=== PATIENT | male | born 1965 | race Caucasian/White ===

== ENCOUNTER 2017-01-09 05:26 | Emergency (ER) | payer MEDICAID ==
[2017-01-09 07:01] LABS: BASOPHIL % 0.4 % (0-2); PLATELET COUNT 219 x10^3mcL (130-400); RED CELL DISTRIBUTION WIDTH 13.1 % (11.5-14.5)
[2017-01-09 07:20] LABS: CALCIUM 8.5 mg/dL (8.5-10.1); CHLORIDE SERUM 102 mmol/L (98-107); CREATININE SERUM 0.8 mg/dL (0.7-1.3); GFR1 > 60 mL/min; GLUCOSE SERUM 395 mg/dL (74-106); POTASSIUM SERUM 4.6 mmol/L (3.5-5.1); SODIUM SERUM 136 mmol/L (136-145)
[2017-01-09 07:24] LABS: ALBUMIN 3.5 g/dL (3.4-5.0); ALKALINE PHOSPHATASE 185 U/L (46-116); ALT/SGPT 29 U/L (16-63); AMYLASE 54 U/L (25-115); AST/SGOT 15 U/L (15-37); BILIRUBIN TOTAL 0.34 mg/dL (0.20-1.00); LIPASE 173 IU/L (73-393); TOTAL PROTEIN, SERUM 6.9 g/dL (6.4-8.2)
[2017-01-09 07:41] LABS: microscopic required? YES; urine erythrocyte 1+ (NEGATIVE)
[2017-01-09 10:46] VITALS: BP 97/57
== END 2017-01-09 10:46 | disposition home or self-care (01) ==
LOC: ED 05:26
PROVIDERS: Emergency Medicine
DX: R10.11 Right upper quadrant pain (principal); E11.9 Type 2 diabetes mellitus without complications
CPT/HCPCS: J1170; J1815; J1885; J2405; Q0092

== ENCOUNTER 2017-03-12 19:23 | Inpatient (IN) | payer MEDICAID ==
[~2017-03-12] VITALS: Ht 165.1 cm; Wt 51.7 kg
[2017-03-12 20:59] LABS: BASOPHIL % 0.6 % (0-2); PLATELET COUNT 185 x10^3mcL (130-400); RED CELL DISTRIBUTION WIDTH 12.8 % (11.5-14.5)
[2017-03-12 21:09] LABS: UA SPECIFIC GRAVITY <=1.005 (1.005-1.035); microscopic required? YES; urine erythrocyte TRACE (NEGATIVE)
[2017-03-12 21:34] LABS: ALBUMIN 3.6 g/dL (3.4-5.0); ALKALINE PHOSPHATASE 180 U/L (46-116); ALT/SGPT 31 U/L (16-63); AMYLASE 64 U/L (25-115); AST/SGOT 16 U/L (15-37); BILIRUBIN TOTAL 0.3 mg/dL (0.20-1.00); CALCIUM 8.9 mg/dL (8.5-10.1); CARBON DIOXIDE 26.6 mmol/L (21-32); CHLORIDE SERUM 98 mmol/L (98-107); CREATININE SERUM 0.9 mg/dL (0.7-1.3); GFR1 > 60 mL/min; LIPASE 425 IU/L (73-393); POTASSIUM SERUM 4.1 mmol/L (3.5-5.1); SODIUM SERUM 135 mmol/L (136-145); TOTAL PROTEIN, SERUM 6.9 g/dL (6.4-8.2)
[2017-03-12 22:00] LABS: GLUCOSE SERUM 725 mg/dL (74-106)
[2017-03-12] MEDS ORDERED: GLUCOPHAGE XR500 MG PO (22:37)
[2017-03-12 23:41] VITALS: BP 145/89
[2017-03-12 23:47] VITALS: Ht 165.1 cm; Wt 51.7 kg
[2017-03-13 00:22] LABS: T3 TOTAL 0.98 ng/mL
[2017-03-13 00:24] LABS: FREE T4 1.24 ng/dL (0.76-1.46); FREE THYROXINE INDEX 3.3 ug/dL (1.4-4.5); T4(THYROXINE) 9.7 ug/dL (4.7-13.3)
[2017-03-13 01:02] LABS: CHOLESTEROL/HDL RATIO 3.3; MAGNESIUM 2.2 mg/dL (1.8-2.4); PHOSPHOROUS 4.9 mg/dL (2.5-4.9)
[2017-03-13 06:20] VITALS: BP 134/83
[2017-03-13 08:30] VITALS: BP 111/73
[2017-03-13 16:18] VITALS: BP 97/63
[2017-03-13 21:18] VITALS: BP 105/73
[2017-03-14 04:47] VITALS: BP 95/62
[2017-03-14 05:46] LABS: BASOPHIL % 0.3 % (0-2); PLATELET COUNT 156 x10^3mcL (130-400); RED CELL DISTRIBUTION WIDTH 12.9 % (11.5-14.5)
[2017-03-14 06:07] LABS: CALCIUM 7.8 mg/dL (8.5-10.1); CHLORIDE SERUM 109 mmol/L (98-107); CREATININE SERUM 0.7 mg/dL (0.7-1.3); GFR1 > 60 mL/min; GLUCOSE SERUM 236 mg/dL (74-106); POTASSIUM SERUM 4.1 mmol/L (3.5-5.1); SODIUM SERUM 142 mmol/L (136-145)
[2017-03-14 10:17] VITALS: BP 100/61
[2017-03-14 14:05] VITALS: BP 111/73
[2017-03-14] MEDS ORDERED: NEU300 PO (14:13)
[2017-03-14] MEDS ORDERED: GLU850 PO (14:13)
[2017-03-14] MEDS ORDERED: GLU5 PO (14:14)
[2017-03-14] MEDS ORDERED: METOCLOPRAMIDE H5 M1 PO (14:21)
[2017-03-14] MEDS ORDERED: HUMULIN R100 U/1 M1 SC (14:29)
[2017-03-14 15:36] VITALS: BP 111/73
[2017-03-14 17:37] VITALS: BP 98/66
== END 2017-03-14 18:10 | disposition home or self-care (01) | DRG 48 ==
LOC: ED 19:23 → DU 22:40
PROVIDERS: Emergency Medicine; Family Medicine; ADMIT Student in an Organized Health Care Education/Training Program
DX: E11.43 Type 2 diabetes mellitus with diabetic autonomic (poly)neuropathy (principal); D68.69 Other thrombophilia; E11.59 Type 2 diabetes mellitus with other circulatory complications; E87.1 Hypo-osmolality and hyponatremia; E11.65 Type 2 diabetes mellitus with hyperglycemia; N39.0 Urinary tract infection, site not specified; E11.40 Type 2 diabetes mellitus with diabetic neuropathy, unspecified; K31.84 Gastroparesis; E78.5 Hyperlipidemia, unspecified; Z79.84 Long term (current) use of oral hypoglycemic drugs; Z68.20 Body mass index [BMI] 20.0-20.9, adult
CPT/HCPCS: 83880; 84439; J0696; J1815; J2270; J2405; J7030; Q0092; Q0162

== ENCOUNTER 2017-05-03 21:25 | Emergency (ER) | payer MEDICAID ==
[~2017-05-03 21:25] MED LIST: GLU5 PO; GLU850 PO; GLUCOPHAGE XR500 MG PO; HUMULIN R100 U/1 M1 SC; METOCLOPRAMIDE H5 M1 PO; NEU300 PO
[2017-05-04 00:14] LABS: CALCIUM 8.4 mg/dL (8.5-10.1); CARBON DIOXIDE 28.4 mmol/L (21-32); CHLORIDE SERUM 102 mmol/L (98-107); CREATININE SERUM 0.9 mg/dL (0.7-1.3); GFR1 > 60 mL/min; GLUCOSE SERUM 202 mg/dL (74-106); MAGNESIUM 1.8 mg/dL (1.8-2.4); POTASSIUM SERUM 3.5 mmol/L (3.5-5.1); SODIUM SERUM 135 mmol/L (136-145)
[2017-05-04 01:57] VITALS: BP 139/85
== END 2017-05-04 01:57 | disposition home or self-care (01) ==
LOC: ED 21:25
PROVIDERS: Emergency Medicine
DX: M79.2 Neuralgia and neuritis, unspecified (principal); E11.65 Type 2 diabetes mellitus with hyperglycemia; Z79.4 Long term (current) use of insulin; Z79.84 Long term (current) use of oral hypoglycemic drugs
CPT/HCPCS: 36415

== ENCOUNTER 2017-08-10 15:01 | Emergency (ER) | payer MEDICAID ==
[2017-08-10 17:22] VITALS: BP 121/86
== END 2017-08-10 17:22 | disposition home or self-care (01) ==
LOC: ED 15:01
DX: S06.0X9A Concussion with loss of consciousness of unspecified duration, initial encounter (principal); S20.212A Contusion of left front wall of thorax, initial encounter; S30.0XXA Contusion of lower back and pelvis, initial encounter; W11.XXXA Fall on and from ladder, initial encounter; Y93.89 Activity, other specified; Y92.89 Other specified places as the place of occurrence of the external cause; Y99.8 Other external cause status; E11.9 Type 2 diabetes mellitus without complications
CPT/HCPCS: J1170; Q0162